=== PATIENT | male | born 1940 | race Caucasian/White ===

== ENCOUNTER → 2017-02-23 | Outpatient (CLI) | payer MEDICARE, BC ==
[~2017-02-23] MED LIST: ACTOS 45MG45 MG/TAB PO; ASPIRIN 81M81 MG/TA2 PO; BYSTOLIC5 MG PO; CO Q-1030 MG PO; DIOVAN 80MG80 MG PO; GLUCOTROL10 MG PO; JANUMET 1000 MG1 TA1 PO; PLAVIX 75MG TAB75 MG PO; PRIL40 PO; RED RICE YEAST E0.4% PO
== END ==
LOC: COL.RAD 09:16
DX: N18.3 Chronic kidney disease, stage 3 (moderate) (principal); Z96.0 Presence of urogenital implants

== ENCOUNTER → 2018-05-07 | Outpatient (CLI) | payer MEDICARE, BC | LOC: COL.RAD 10:14 | DX: R06.09 Other forms of dyspnea (principal); R91.8 Other nonspecific abnormal finding of lung field ==

== ENCOUNTER → 2018-06-14 | Outpatient (CLI) | payer MEDICARE, BC | LOC: COL.PUL 06:50 | DX: R06.02 Shortness of breath (principal) ==

== ENCOUNTER → 2018-10-03 | Outpatient (CLI) | payer MEDICARE, BC | LOC: COL.RAD 10-01 09:00 | DX: Z13.6 Encounter for screening for cardiovascular disorders (principal) ==

== ENCOUNTER 2019-02-05 07:00 | Day surgery (SDC) | payer MEDICARE, BC ==
[~2019-02-05] VITALS: Ht 175.3 cm; Wt 109.2 kg
[2019-02-05 08:11] VITALS: BP 169/77; PULSE 72; TEMP 97.7
[2019-02-05] MEDS ORDERED: LIPITOR20 MG PO (08:21)
[2019-02-05] MEDS ORDERED: NORVASC 10MG10 MG PO (08:22)
[2019-02-05] MEDS ORDERED: LAMISIL250 M1 (08:23)
[2019-02-05] MEDS ORDERED: GLUCOTROL XL10 MG PO (08:24)
[2019-02-05] MEDS ORDERED: ACTOS 45MG45 MG/TAB PO (08:25)
[2019-02-05] MEDS ORDERED: PROTONIX 40MG T40 MG PO (08:26)
[2019-02-05] MEDS ORDERED: PLAVIX 75MG TAB75 MG PO (08:27)
[2019-02-05] MEDS ORDERED: ULTRAVATE CREAM15 GM (08:28)
[2019-02-05] MEDS ORDERED: JANUMET 1000 MG1 TA1 PO (08:28)
[2019-02-05] MEDS ORDERED: COZAAR100 MG PO (08:28)
[2019-02-05] MEDS ORDERED: ASPIRIN 81M81 MG/TA2 PO (08:30)
[2019-02-05] MEDS ORDERED: THE MEDICINE S200 M2 PO (08:35)
[2019-02-05] MEDS ORDERED: IFEREX 150 FORT1 CAP PO (08:35)
[2019-02-05] MEDS ORDERED: VITAMIN B12 1541 TAB PO (08:36)
[2019-02-05] MEDS ORDERED: FISH OIL 500 M1 EAC1 PO (08:38)
[2019-02-05] MEDS ORDERED: ALLEGRA 180MG180 MG PO (08:39)
[2019-02-05] MEDS ORDERED: BENADRYL25 M2 PO (08:39)
[2019-02-05] MEDS ORDERED: [UNRECOGNIZED DRUG - OTHER] PO (08:41)
[2019-02-05] MEDS ORDERED: JUICE PLUS ORCHARD PO (08:42)
[2019-02-05] MEDS ORDERED: [UNRECOGNIZED DRUG - OTHER] PO (08:43)
[2019-02-05 09:15] VITALS: BP 118/59; PULSE 64; TEMP 97.7
[2019-02-05 09:30] VITALS: BP 115/67; PULSE 66
[2019-02-05 09:45] VITALS: BP 125/85; PULSE 68
--- NOTE | 2019-02-05 10:24 | NUR ---
PT CAME BACK FROM ENDOSCOPY AT 0915. PT ALERT AND ORIENTATED, DENIES PAIN AND DENIES NAUSEA. ASKED FOR COFFEE AND JUICE. PT STATED HE WOULD EAT LATER WITH HIS . AT BEDSIDE, JOKING WITH EACH OTHER AND SMILING. TOLERATED FLUIDS WITHOUT DIFFICULTY. DISCHARGE INSTRUCTIONS GIVEN, PT AND VOICED UNDERSTANDING. IV WAS DC'D AND PRESSURE DRESSING APPLIED. PT TOLERATED WELL. PT WALKED OUT WITH WITHOUT ASSISTANCE, CLOSE BY, STEADY AND DENIED ANY C/O. PT WALKED OUT TO FAMILY CAR TO HOME.
== END 2019-02-05 11:45 | disposition home or self-care (01) ==
LOC: SDCO 07:00
DX: K63.5 Polyp of colon (principal); K64.0 First degree hemorrhoids; K57.30 Diverticulosis of large intestine without perforation or abscess without bleeding; K21.9 Gastro-esophageal reflux disease without esophagitis; E11.9 Type 2 diabetes mellitus without complications; D50.9 Iron deficiency anemia, unspecified; I10 Essential (primary) hypertension; J44.9 Chronic obstructive pulmonary disease, unspecified; Z90.49 Acquired absence of other specified parts of digestive tract; Z79.82 Long term (current) use of aspirin; Z79.84 Long term (current) use of oral hypoglycemic drugs; Z79.02 Long term (current) use of antithrombotics/antiplatelets
CPT/HCPCS: J2250; J2405; J3010; J7030

== ENCOUNTER → 2019-02-20 | Outpatient (CLI) | payer MEDICARE, BC ==
[~2019-02-20] MED LIST changes: +ALLEGRA 180MG180 MG PO; +BENADRYL25 M2 PO; +COZAAR100 MG PO; +FISH OIL 500 M1 EAC1 PO; +GLUCOTROL XL10 MG PO; +IFEREX 150 FORT1 CAP PO; +JUICE PLUS ORCHARD PO; +LAMISIL250 M1; +LIPITOR20 MG PO; +NORVASC 10MG10 MG PO; +PROTONIX 40MG T40 MG PO; +THE MEDICINE S200 M2 PO; +ULTRAVATE CREAM15 GM; +VITAMIN B12 1541 TAB PO; +[UNRECOGNIZED DRUG - OTHER] PO; +[UNRECOGNIZED DRUG - OTHER] PO
== END ==
LOC: COL.LAB 10:50
DX: R19.7 Diarrhea, unspecified (principal)

== ENCOUNTER 2024-05-11 14:18 | Emergency (ER) | payer MEDICARE ==
[~2024-05-11] VITALS: Ht 175.3 cm; Wt 108.2 kg
[2024-05-11 14:34] VITALS: TEMP 97.6
[2024-05-11 15:31] LABS: BASO % 0.6 % (0.0-2.0); EOS # 0.2 K/mm3 (0.0-0.7); EOS % 5.2 % (0.0-4.0); GRAN # 2.6 K/mm3 (1.4-6.5); HEMATOCRIT 39.1 % (42.0-52.0); LYMPH # 1.2 K/mm3 (1.2-3.4); LYMPH % 26.7 % (20.0-51.0); MEAN CELL VOLUME 103 fl (80.0-100.0); MEAN CORPUSCULAR HEMOGLOBIN 34 pg (27-31); MEAN CORPUSCULAR HGB CONC 33 g/dl (33.0-37.0); MEAN PLATELET VOLUME 12.7 fl (7.4-10.4); MONO # 0.5 K/mm3 (0.1-0.6); MONO % 10.1 % (1.7-9.3); PLATELET COUNT 124 K/mm3 (130-400); REDCELL DISTRIBUTION WIDTH-CV 12.5 % (11.5-14.5)
[2024-05-11 15:46] LABS: ALBUMIN 3.8 g/dL (3.4-4.8); BILIRUBIN,TOTAL 0.5 mg/dL (0.2-1.2); CALCIUM 9.5 mg/dL (8.4-10.2); CREATININE, serum 1.23 mg/dL (0.72-1.25); POTASSIUM 4.7 mEq/L (3.5-4.5); TOTAL PROTEIN 6.7 g/dl (6.2-8.1)
[2024-05-11 15:52] LABS: TROPONIN-I 0.013 ng/mL (0.00-0.033)
[2024-05-11 16:42] LABS: PH 5.5 (5.0-8.5); URINE APPEARANCE CLEAR (CLEAR/HAZY); URINE BLOOD NEGATIVE (NEGATIVE); URINE COLOR YELLOW (YELLOW); URINE GLUCOSE NEGATIVE (NEGATIVE); URINE KETONE TRACE (NEGATIVE); URINE NITRATE NEGATIVE (NEGATIVE); URINE PROTEIN(semi-quant) TRACE (NEGATIVE)
[2024-05-11 17:14] LABS: COLLECTION METHOD CLEAN CATCH
[2024-05-11 18:09] VITALS: BP 162/77; PULSE 72
== END 2024-05-11 18:09 | disposition home or self-care (01) ==
LOC: COL.ER 14:18
PROVIDERS: Family Medicine
DX: S00.03XA Contusion of scalp, initial encounter (principal); W11.XXXA Fall on and from ladder, initial encounter; Y92.009 Unspecified place in unspecified non-institutional (private) residence as the place of occurrence of the external cause